=== PATIENT | male | born 1955 | race African-American/Black ===

== ENCOUNTER 2020-01-14 08:49 | Day surgery (SDC) | payer BC ==
[~2020-01-14] VITALS: Ht 170.2 cm; Wt 79.4 kg
[2020-01-14] VITALS (9 sets, daily range): BP systolic 121–149; BP diastolic 74–86
[2020-01-14] MEDS ORDERED: LR 1000ml ONE (08:50)
[2020-01-14] MEDS ORDERED: Lidocaine 2% MPF 5ml Vial INJ ONE (08:50)
--- NOTE | 2020-01-14 09:37 | Anethesia Preoperative Eval ---
Anesthesia Pre-op PMH/ROS General Date of Evaluation: Jan 14, 2020 Time of Evaluation: 09:36 Anesthesiologist: sri ASA Score: ASA 2 Mallampati Score Class I : Soft palate, uvula, fauces, pillars visible Class II: Soft palate, uvula, fauces visible Class III: Soft palate, base of uvula visible Class IV: Only hard plate visible Mallampati Classification: Class II Surgeon: mihai Diagnosis: gerd, colon screening Surgical Procedure: egd/colonoscopy Anesthesia History: none Social History: smoking - nonsmoker Family History: no anesthesia problems Allergies: Coded Allergies: No Known Allergies (Unverified , 01/14/20) Medications: see eMAR Patient NPO?: Yes Past Medical History Gastrointestinal/Genitourinary: Reports: GERD HEENT: Reports: cataract (L), cataract (R) Hematology/Immune: Reports: other - covid-19 negative PSxH Narrative: laminectomy Anesthesia Pre-op Phys. Exam Physician Exam Last Vital Signs Date Time Temp Pulse Resp B/P (MAP) Pulse Ox O2 Delivery O2 Flow Rate FiO2 01/14/20 09:18 Room Air 01/14/20 09:17 97.6 64 18 149/82 98 Constitutional: NAD Neurologic: CN 2-12 intact Cardiovascular: RRR Respiratory: CTA Gastrointestinal: S/NT/ND Airway Exam Mallampati Score: Class II MO: limited Neck: flexible TMD: 2fb ROM: limited Anesthesia Pre-op A/P Labs Microbiology Date/Time Source Procedure Growth Status 01/12/20 10:10 Nasopharynx SARS-CoV-2 RdRp Gene Assay - Final Complete Studies Pre-op Studies: EKG - sinus bradycardia Risk Assessment & Plan Assessment: asa2 Plan: mac Status Change Before Surgery: No Pre-Antibiotics Drug: Gabby Lal MD Jan 14, 2020 09:37
--- NOTE | 2020-01-14 09:38 | Short Stay Surgery H&P ---
History of Present Illness History of Present Illness Chief Complaint screening colon GERD HPI Jennet Jerilyn Bush is a 64 year old male who was admitted on for Gerd, Colon Screening Patient History Allergies: Coded Allergies: No Known Allergies (Unverified , 01/14/20) Medication History No Active Prescriptions or Reported Meds Review of Systems Cardiovascular: Reports: no symptoms Respiratory: Reports: no symptoms Skeletal: Reports: no symptoms Gastrointestinal: Reports: gastro esophageal reflux disease Genitourinary: Reports: no symptoms Neurologic: Reports: no symptoms Endocrine: Reports: no symptoms Hematologic: Reports: no symptoms Physical Exam Vital Signs Last Vital Signs Date Time Temp Pulse Resp B/P (MAP) Pulse Ox O2 Delivery O2 Flow Rate FiO2 01/14/20 09:18 Room Air 01/14/20 09:17 97.6 64 18 149/82 98 Skin: normal HENT: normal Heart: normal Lungs: normal Abdomen: normal Extremities: normal Plan Plan of Care esophagogastroduodenoscopy and colonoscopy Attestation Are the patient's medical conditions optimized for surgery? Attestation Response: yes Kirit Contreras MD Jan 14, 2020 09:38
--- NOTE | 2020-01-14 09:38 | Pre-Procedure Note/Attestation ---
Pre-Procedure Note/Attestation Complete Prior to Procedure Planned Procedure: not applicable Procedure Narrative: esophagogastroduodenoscopy and colonoscopy Indications for Procedure Pre-Operative Diagnosis: GERD, screening colon Attestation I attest that I discussed the nature of the procedure; its benefits; risks and complications; and alternatives (and the risks and benefits of such al ternatives), prior to the procedure, with the patient (or the patient's legal advertising account representative). I attest that, if there was a reasonable possibility of needing a blood transfusion, the patient (or the patient's legal advertising account representative) was given the [facility] standardized written summary, pursuant to the Severino Van Blood Safety Act ([place] Health and Safety Code # 1645, as amended). I attest that I re-evaluated the patient just prior to the surgery and that there has been no change in the patient's H&P, except as documented below: Kirit Contreras MD Jan 14, 2020 09:38
[2020-01-14] MEDS ORDERED: Atropine Inj 1mg/10ml Syr IVP PRN (09:45)
[2020-01-14] MEDS ORDERED: Midazolam 2mg/2ml Inj IVP PRN (09:45)
[2020-01-14] MEDS ORDERED: fentaNYL 100 mcg/2 mL IV PRN (09:45)
[2020-01-14] MEDS ORDERED: DiphenhydrAMINE 50mg/ml Inj IVP PRN (09:45)
[2020-01-14] MEDS ORDERED: Labetalol 5mg/ml 20ml vial IV PRN (09:45)
[2020-01-14] MEDS ORDERED: LR 1000ml 1,000 ML IVLG SCH (09:45)
--- NOTE | 2020-01-14 10:26 | Endoscopy Procedure Note ---
Endoscopy Procedure Note General Indication for Procedure: screening colon Procedures Performed: EGD, colonoscopy Operative Findings/Diagnosis: gastritis, hemorrhoids Specimen: yes Pt Tolerated Procedure Well: Yes Estimated Blood Loss: none Anesthesia Anesthesiologist: chandra Anesthesia: MAC Inserted Devices Implant(s) used?: No Quality Quality of Bowel Preparation: Good Did scope reach the cecum?: Yes Was there any complications?: No GI Core Measures 50 yrs or older w/o bx or poly: No 10yrs. F/U recommended: Yes If not recommended, why?: Above average risk 18 years or older w/prev. colo: No Kirit Contreras MD Jan 14, 2020 10:26
--- NOTE | 2020-01-14 10:46 | Immediate Post-Op Evaluation ---
Immediate Post-Op Evalulation Immediate Post-Op Evalulation Procedure: egd/colonoscopy w/bx Date of Evaluation: Jan 14, 2020 Time of Evaluation: 10:40 IV Fluids: 400ml lr Blood Products: none Estimated Blood Loss: negligible Blood Pressure Systolic: 125 Blood Pressure Diastolic: 86 Pulse Rate: 60 Respiratory Rate: 18 O2 Sat by Pulse Oximetry: 100 Temperature (Fahrenheit): 97.2 Pain Score (1-10): 0 Nausea: No Vomiting: No Complications none Patient Status: awake, reacts, patent Hydration Status: adequate Drug: Gabby Lal MD Jan 14, 2020 10:45
--- NOTE | 2020-01-14 10:47 | 48 Hour Post Anesthesia Eval ---
Post Anesthesia Evaluation Procedure: egd/colonoscopy w/bx Date of Evaluation: Jan 14, 2020 Time of Evaluation: 10:42 Blood Pressure Systolic: 121 0: 86 Pulse Rate: 66 Respiratory Rate: 18 Temperature (Fahrenheit): 97.2 O2 Sat by Pulse Oximetry: 100 Airway: patent Nausea: No Vomiting: No Pain Intensity: 0 Hydration Status: adequate Cardiopulmonary Status: stable Mental Status/LOC: patient returned to baseline Post-Anesthesia Complications: none Follow-up care needed: N/A Gabby Posada MD Jan 14, 2020 10:47
--- NOTE | 2020-01-14 15:14 | Procedure Note ---
DATE OF PROCEDURE: 01/14/2020 SURGEON: Kirit Contreras MD PROCEDURE: Upper endoscopy with biopsy and colonoscopy. ANESTHESIA: Per Dr. Gomez. INSTRUMENT: Olympus adult flexible upper endoscope and colonoscope. REASON FOR PROCEDURE: The procedure, risks, benefits, and possible consequences, including hemorrhage, aspiration, perforation and infection, and alternative treatments, were explained to the patient/legal guardian by Dr. Kirit Contreras and the patient/legal guardian understood and accepted these risks. INDICATION: Screening colonoscopy evaluation and chronic GERD. DESCRIPTION OF PROCEDURE: After informed consent was obtained and patient was adequately sedated, Olympus upper endoscope was advanced from mouth into the second portion of the duodenum and retroflexion was performed in the stomach. GE junction was found to be about 38 cm from the incisors. No evidence of any esophagitis. In the stomach, there was diffuse atrophic gastritis. Random biopsy from antrum and body was obtained to rule out H. pylori infection. The rest of the upper endoscopic examination grossly looked within normal limits. At this time, the upper endoscope was retrieved and patient was turned over for colonoscopy. First, rectal examination was performed, which was positive for internal hemorrhoids. Then the scope was advanced from rectum into cecum then subsequently terminal ileum. Quality of prep was excellent. Patient had no polyps found in this colonoscopy examination. Patient had evidence of scattered diverticulosis in the left colon. Retroflexion in the rectum was performed, which showed evidence of medium-sized nonbleeding internal hemorrhoids. SUMMARY OF FINDINGS: 1. Atrophic gastritis, status post biopsy. 2. Diverticulosis of the left colon. 3. Internal hemorrhoids. RECOMMENDATIONS: 1. Follow pathology results and treat accordingly. 2. We recommend repeat colonoscopy in 10 years. I want to thank, Dr. Manpreet Thomas for this kind referral. Kirit Contreras M.D. DR: CAMERON JOB#: [id number] CC: Manpreet Thomas DO
== END 2020-01-14 11:55 | disposition home or self-care (01) ==
LOC: GAS 08:49 → EDBD 11:00 → GAS 11:55
DX: Z12.11 Encounter for screening for malignant neoplasm of colon (principal); K21.9 Gastro-esophageal reflux disease without esophagitis; K29.40 Chronic atrophic gastritis without bleeding; K57.90 Diverticulosis of intestine, part unspecified, without perforation or abscess without bleeding; K64.8 Other hemorrhoids; R00.1 Bradycardia, unspecified
CPT/HCPCS: 43239; 45378; 93005; 94003; J2704; J7120; U0002; 94150